=== PATIENT | male | born 1985 | race Caucasian/White ===

== ENCOUNTER 2020-09-30 06:45 | Inpatient (IN) | payer OTHER ==
[~2020-09-30] VITALS: Ht 177.8 cm; Wt 74.8 kg
[2020-09-30 08:49] LABS: HEMOGLOBIN 14.4 gm/dl (14.0-17.5); RED BLOOD COUNT 4.98 M/UL (4.20-5.50); WHITE BLOOD COUNT 14.1 K/UL (4.5-11.0)
[2020-09-30 09:29] LABS: BUN/CREATININE RATIO 20 (0-10)
[2020-09-30] MEDS ORDERED: HYDROCODON-ACE1 EAC6 PO (18:02)
--- NOTE | 2020-09-30 20:22 | NUR ---
NOTIFIED DR ANGEL OF ELEVATED V/S (BP- 134/94 AND HR- 128). RECIEVED NO NEW ORDERS.
--- NOTE | 2020-09-30 21:25 | NUR ---
notified dr lawrence of hr- 146. recieved orders. will continue to monitor
[2020-10-01 04:33] LABS: HEMOGLOBIN 10.3 gm/dl (14.0-17.5); RED BLOOD COUNT 3.66 M/UL (4.20-5.50); WHITE BLOOD COUNT 22.4 K/UL (4.5-11.0)
[2020-10-01 04:48] LABS: BUN/CREATININE RATIO 28 (0-10)
[2020-10-02 02:33] LABS: RED BLOOD COUNT 2.82 M/UL (4.20-5.50); WHITE BLOOD COUNT 14.6 K/UL (4.5-11.0)
[2020-10-02 02:51] LABS: BUN/CREATININE RATIO 26 (0-10)
--- NOTE | 2020-10-02 21:59 | NUR ---
NOTIFIED DR ANGEL OF PT VOMITING GREEN EMESIS AND PASSING BRIGHT RED BLOOD IN HIS STOOL. RECIEVED ORDERS. PT RESTING QUIETLY, FREE OF DISTRESS. WILL CONTINUE TO MONITOR.
[2020-10-03 05:23] LABS: HEMOGLOBIN 7.8 gm/dl (14.0-17.5); RED BLOOD COUNT 2.82 M/UL (4.20-5.50)
[2020-10-03 05:45] LABS: BUN/CREATININE RATIO 23 (0-10)
[2020-10-03 05:55] LABS: WHITE BLOOD COUNT 9.1 K/UL (4.5-11.0)
[2020-10-04 03:42] LABS: HEMOGLOBIN 7.9 gm/dl (14.0-17.5); RED BLOOD COUNT 2.87 M/UL (4.20-5.50); WHITE BLOOD COUNT 11.3 K/UL (4.5-11.0)
[2020-10-04 04:21] LABS: BUN/CREATININE RATIO 20 (0-10)
[2020-10-05 03:19] LABS: HEMOGLOBIN 8.2 gm/dl (14.0-17.5); RED BLOOD COUNT 2.97 M/UL (4.20-5.50)
[2020-10-05 03:26] LABS: WHITE BLOOD COUNT 15.3 K/UL (4.5-11.0)
[2020-10-05 04:05] LABS: BUN/CREATININE RATIO 15 (0-10)
[2020-10-06 08:21] LABS: HEMOGLOBIN 8.9 gm/dl (14.0-17.5); RED BLOOD COUNT 3.2 M/UL (4.20-5.50); WHITE BLOOD COUNT 17.9 K/UL (4.5-11.0)
[2020-10-06 08:32] LABS: BUN/CREATININE RATIO 19 (0-10)
[2020-10-06 20:28] LABS: HEMOGLOBIN 8.9 gm/dl (14.0-17.5); RED BLOOD COUNT 3.27 M/UL (4.20-5.50); WHITE BLOOD COUNT 19.1 K/UL (4.5-11.0)
[2020-10-07 02:13] LABS: HEMOGLOBIN 8.4 gm/dl (14.0-17.5); RED BLOOD COUNT 3.19 M/UL (4.20-5.50); WHITE BLOOD COUNT 22.9 K/UL (4.5-11.0)
[2020-10-07 02:31] LABS: BUN/CREATININE RATIO 15 (0-10)
[2020-10-08 06:28] LABS: RED BLOOD COUNT 3.3 M/UL (4.20-5.50); WHITE BLOOD COUNT 23.2 K/UL (4.5-11.0)
[2020-10-08 07:01] LABS: BUN/CREATININE RATIO 13 (0-10)
[2020-10-09 03:23] LABS: HEMOGLOBIN 8.6 gm/dl (14.0-17.5); RED BLOOD COUNT 3.14 M/UL (4.20-5.50); WHITE BLOOD COUNT 23.5 K/UL (4.5-11.0)
[2020-10-09 03:42] LABS: BUN/CREATININE RATIO 17 (0-10)
[2020-10-10 03:12] LABS: HEMOGLOBIN 9.1 gm/dl (14.0-17.5); RED BLOOD COUNT 3.32 M/UL (4.20-5.50); WHITE BLOOD COUNT 19.3 K/UL (4.5-11.0)
[2020-10-10 03:26] LABS: BUN/CREATININE RATIO 15 (0-10)
[2020-10-11 06:36] LABS: HEMOGLOBIN 10.1 gm/dl (14.0-17.5); RED BLOOD COUNT 3.74 M/UL (4.20-5.50); WHITE BLOOD COUNT 18.3 K/UL (4.5-11.0)
[2020-10-11 07:13] LABS: BUN/CREATININE RATIO 18 (0-10)
[2020-10-12 06:23] LABS: HEMOGLOBIN 9.2 gm/dl (14.0-17.5); RED BLOOD COUNT 3.38 M/UL (4.20-5.50); WHITE BLOOD COUNT 17.6 K/UL (4.5-11.0)
[2020-10-12 06:32] LABS: BUN/CREATININE RATIO 18 (0-10)
[2020-10-12] MEDS ORDERED: PERCOCET 5/325 T1 EA PO (09:27)
[2020-10-12] MEDS ORDERED: LEVOFLOXACIN500 MG PO (09:27)
[2020-10-12] MEDS ORDERED: DIFLUCAN200 MG PO (09:27)
[2020-10-12] MEDS ORDERED: AUGMENTIN 875-1 EACH PO (09:27)
[2020-10-12] MEDS ORDERED: ENOXAPARIN100 MG/1 M SC (09:27)
--- NOTE | 2020-10-12 11:18 | NUR ---
INSTRUCTED ON ANTIBIOTICS AND FOLLOW UP APPOINTMENTS . MEDS SENT TO [facility]. INSTRUCTED ON PROPER TECHNIQUE FOR LOVENOX INJECTION. VERBALIZED SISTER IS HOME HEALTH R.N. CAN GIVE INJECTIONS. VERBALIZED UNDERSTANDING OF COMPLETION OF ANTIBIOTICS AND FOLLOW UP NEEDED. LUIS FORDE R.N.
== END 2020-10-12 12:48 | disposition home or self-care (01) | DRG 856 ==
LOC: ER1 06:45 → MED SURG 4 11:36 → CDU 11:36 → MED SURG 4 15:50
PROVIDERS: Physician Assistant; ADMIT Surgery
PROC: 0DJD0ZZ Inspection of Lower Intestinal Tract, Open Approach (ICD-10-PCS; 2020-09-30)
PROC: 0DB80ZZ Excision of Small Intestine, Open Approach (ICD-10-PCS; 2020-09-30)
PROC: 0DTF0ZZ Resection of Right Large Intestine, Open Approach (ICD-10-PCS; principal; 2020-09-30 12:37)
DX: T81.40XA Infection following a procedure, unspecified, initial encounter (principal); A41.9 Sepsis, unspecified organism; J18.9 Pneumonia, unspecified organism; I74.5 Embolism and thrombosis of iliac artery; E46 Unspecified protein-calorie malnutrition; T81.44XA Sepsis following a procedure, initial encounter; K68.11 Postprocedural retroperitoneal abscess; D72.829 Elevated white blood cell count, unspecified; Y95 Nosocomial condition; Z68.23 Body mass index [BMI] 23.0-23.9, adult; Z82.49 Family history of ischemic heart disease and other diseases of the circulatory system
CPT/HCPCS: 36415; 71045; 80048; 80053; 81001; 82150; 83605; 83690; 83735; 84132; 85025; 85027; 85610; 85730; 87040; 87635; 96365; 96375; 99285; J1100; J1170; J1335; J1644; J1650; J1885; J2001; J2185; J2248; J2250; J2270; J2405; J2543; J2704; J2710; J3010; J7030; J7070; J7120; Q9967

== ENCOUNTER 2020-10-31 13:13 | Emergency (ER) | payer OTHER ==
[~2020-10-31 13:13] MED LIST: AUGMENTIN 875-1 EACH PO; DIFLUCAN200 MG PO; ENOXAPARIN100 MG/1 M SC; HYDROCODON-ACE1 EAC6 PO; LEVOFLOXACIN500 MG PO; PERCOCET 5/325 T1 EA PO
[2020-10-31 16:24] LABS: HEMOGLOBIN 10.3 gm/dl (14.0-17.5); RED BLOOD COUNT 4.19 M/UL (4.20-5.50); WHITE BLOOD COUNT 15.6 K/UL (4.5-11.0)
[2020-10-31 16:58] LABS: BUN/CREATININE RATIO 14 (0-10)
[2020-10-31] MEDS ORDERED: ENDOCET 5-3251 EACH PO (19:29)
[2020-10-31] MEDS ORDERED: ZOFRAN ODT 4 MG4 MG SL (19:29)
== END 2020-10-31 20:20 | disposition home or self-care (01) ==
LOC: ER1 13:13
PROVIDERS: Emergency Medicine
DX: R07.2 Precordial pain (principal); R11.2 Nausea with vomiting, unspecified
CPT/HCPCS: 71045; 80053; 81001; 82550; 82553; 83690; 84484; 85025; 93005; 96374; 96375; 96376; 99285; J1170; J2405; Q9967

== ENCOUNTER → 2020-11-24 | Outpatient (CLI) | payer OTHER ==
[~2020-11-24] MED LIST changes: +ENDOCET 5-3251 EACH PO; +ZOFRAN ODT 4 MG4 MG SL
== END ==
LOC: EXRD 09:59
DX: N20.1 Calculus of ureter (principal)
CPT/HCPCS: 74018

== ENCOUNTER → 2021-02-14 | Outpatient (CLI) | payer OTHER ==
[2021-02-14 15:36] LABS: HEMOGLOBIN 14.1 gm/dl (14.0-17.5); RED BLOOD COUNT 5.43 M/UL (4.20-5.50); WHITE BLOOD COUNT 10.8 K/UL (4.5-11.0)
[2021-02-14 15:57] LABS: BUN/CREATININE RATIO 11 (0-10)
== END ==
LOC: CT 14:51
PROVIDERS: Family Medicine
DX: D64.9 Anemia, unspecified (principal)
CPT/HCPCS: 36415; 75635; 80053; 82728; 83540; 83550; 85025; 85045; Q9967